=== PATIENT | male | born 1940 | race Two or more races ===

== ENCOUNTER 2017-10-06 13:52 | Observation (INO) | payer MEDICARE, MEDICAID ==
[2017-10-06] MEDS ORDERED: Nitroglycerin 2% OINT* 1 GM PAK TOPICAL ONE (14:13)
[2017-10-06] MEDS ORDERED: Furosemide IV* 10 MG/ML VIAL (40 MG) IV SLOW PU ONE (14:13)
[2017-10-06 14:50] LABS: Hematocrit 39 % (42-52); Hemoglobin 12.6 g/dl (14.0-18.0); Mean Corpuscular HGB Conc 32 g/dl (31-36); Mean Corpuscular Hemoglobin 32 pg (27-31); Mean Corpuscular Volume 100 fL (80-94); Mean Platelet Volume 10 um3 (7.4-10.4); Red Blood Count 3.89 10^6/ul (4.0-5.4); Red Cell Distribution Width 17 % (10.5-15); White Blood Count 5.6 10^3/ul (3.5-10.8)
--- NOTE | 2017-10-06 14:51 | RAD ---
INDICATION: Shortness of breath and rales. COMPARISON: Comparison is made with a prior chest x-ray study from September 24, 2016. TECHNIQUE: A portable view of the chest was obtained. FINDINGS: The heart is moderately enlarged and appears to have increased in size from the prior study. There is diffuse prominence of the interstitial markings and a small right pleural effusion most consistent with congestive heart failure. IMPRESSION: FINDINGS MOST CONSISTENT WITH CONGESTIVE HEART FAILURE.
[2017-10-06 15:06] LABS: Albumin 3.7 g/dL (3.2-5.2); BUN/Creatinine Ratio 10.6 (8-20); EGFR African American 32.8 (>60); EGFR Non-African American 25.5 (>60); Globulin 3.5 g/dL (2-4); Potassium 4.5 mmol/L (3.5-5.0); Total Bilirubin 0.9 mg/dL (0.2-1.0); Total Protein 7.2 g/dL (6.4-8.9)
[2017-10-06 15:08] LABS: Troponin I 0.03 ng/mL (<0.04)
[2017-10-06] MEDS ORDERED: Warfarin TAB(*) 2 MG PO SCH (17:00)
[2017-10-06] MEDS ORDERED: Albuterol HFA INHALER* 8 gm MDI INH PRN (17:06)
[2017-10-06] MEDS ORDERED: Acetaminophen TAB* 325 MG PO PRN (17:15)
--- NOTE | 2017-10-06 18:30 | HP ---
CC: Dr. Holm * [facility] MEDICINE HISTORY AND PHYSICAL: DATE OF ADMISSION: 10/06/17 PRIMARY CARE PHYSICIAN: Dr. Holm. ATTENDING PHYSICIAN: Dr. Twyla Bass * (dictation provided by Sarah Schmidt NP ). CHIEF COMPLAINT: Shortness of breath and lower extremity edema. HISTORY OF PRESENT ILLNESS: Mr. Madi Lebron is a 77-year-old male who is a Mozambican speaker and translation was provided by his daughter with whom he lives. Per the report from her and from the electronic medical record, he has a history of coronary artery disease with OH secondary to pulmonary embolism back in 2012, at which time he had a cardiac arrest. He also has hypertension, hyperlipidemia, BPH, CKD stage 4, and diastolic heart failure. The patient has been doing reasonably well. Recently, he last followed up with Dr. Holm on and at that time, there were no acute concerns. However, since Thanksgiving, the patient has been having increased shortness of breath and lower extremity edema. The patient' daughter denies any overt or excessive salt intake, but they do have a Thanksgiving meal. She notes that he was short of breath with walking across the room and that his lower extremity edema has increased. Today, he was short of breath at rest and therefore, she brought him to the emergency room for evaluation. He denies any other complaints. There is no fever, chills, cough, chest pain, nausea, vomiting, or abdominal pain. He has had a poor appetite recently. In the emergency room, Mr. Lebron had a chest x-ray, which showed likely pulmonary edema. His BUN and creatinine were baseline. His vitals were stable. He was noted to have an O2 saturation in the 70s. When he first arrived, he responded well to initial 4 L nasal cannula although now he is on room air. PAST MEDICAL HISTORY: 1. Coronary artery disease with OH secondary to pulmonary embolism, during which time he had a cardiac arrest in 2012. 2. Hypertension. 3. Hyperlipidemia. 4. BPH. 5. CKD stage 4. 6. Diastolic congestive heart failure. 7. Bilateral iliac aneurysms. 8. COPD. MEDICATIONS: 1. Epinephrine p.r.n. 2. Amlodipine 2.5 mg p.o. daily. 3. Furosemide 20 mg p.o. daily. 4. Warfarin 2 mg alternating with 3 mg every other day. 5. Albuterol inhaler 2 puffs inhaled q.4 hours p.r.n. 6. Atenolol 25 mg p.o. daily. 7. Atorvastatin 10 mg p.o. daily. 8. Calcitriol 0.25 mcg p.o. daily. 9. Cyanocobalamin 1000 mcg p.o. daily. 10. Ropinirole 0.25 mg p.o. at bedtime. 11. Tamsulosin 0.4 mg p.o. at bedtime. ALLERGIES: No known drug allergies. FAMILY HISTORY: Unknown. SOCIAL HISTORY: The patient is a former smoker. He quit in April. He has a 50 - pack year smoking history. He denies alcohol or drug use. He lives with his daughter. She is her surrogate decision maker. Her name is Niurka Quintanilla. REVIEW OF SYSTEMS: No fevers. No chills. No intended weight loss. Cardiac: No chest pain. Positive for edema. No cough. No hemoptysis. Positive for shortness of breath. No nausea, vomiting, or diarrhea. Positive for concern of constipation. Now, he has been having daily small bowel movements. No gross hematuria or dysuria. Neuro: No focal weakness or sensory loss. Eyes: No visual complaints. ENT: No dysphagia. Musculoskeletal: No arthralgias or myalgias. Skin: No rashes or lesions. Psych: No depression or anxiety. PHYSICAL EXAMINATION GENERAL: Mr. Madi Lebron is sitting on the bed. He is in no acute distress. His daughter is at the bedside. VITAL SIGNS: Temperature 97.5, pulse rate 59, respiratory rate 18, O2 saturation 99% on room air, blood pressure 129/72. LUNGS: Clear to auscultation bilaterally though they are very diminished and there is no good air movement. He is able to speak in complete sentences. There is no sternal retractions. Excessive work of breathing. HEART: S1, S2. No murmur, rub, or gallop and regular. ABDOMEN: Soft and nontender with bowel sounds positive x4. EXTREMITIES: No cyanosis. Positive for 1 to 2+ edema. NEUROLOGIC: He is alert. He is oriented x3. He moves all extremities equally. There is no facial asymmetry or focal weakness. Extraocular movements are intact. SKIN: Intact. LABORATORY DATA: Sodium 138, potassium 4.5, chloride 100, serum bicarbonate 36 , BUN 26, creatinine 2.46, glucose 126, lactic acid 1.2. WBC 5.6, hemoglobin 12.6, hematocrit 39, platelet count 126. INR 2.09. Chest x-ray shows concern for pulmonary edema. IMPRESSION: Mr. Madi Lebron is a 77-year-old male with past medical history of coronary artery disease, myocardial infarction secondary to a PE in 2012, during which time he had a cardiac arrest, chronic kidney disease stage 3, diastolic heart failure, hypertension, who presents to the hospital with concern for shortness of breath and lower extremity edema. Our plans are for observation in the hospital for the followin. Congestive heart failure: The patient only takes 20 mg of Lasix a day. I plan to give him a 40 mg of IV Lasix x1 now. He does have chronic kidney disease with BUN and creatinine at their baseline, which are 26 and 2.46 respectively. I think given this, it is prudent to await reassessment in the a.m. of his urine output and his breathing status as well as his kidney function before redosing Lasix. He will have I's and O's and daily weights. He will be monitored on telemetry unit. 2. Hypertension: We plan to hold amlodipine while we are diuresing. We will also be holding some furosemide, but plan to continue atenolol to avoid any rebound tachycardia. 3. Hyperlipidemia: Continue atorvastatin. 4. Benign prostatic hypertrophy: Continue tamsulosin. 5. Code status is full code. TIME SPENT: Approximately 60 minutes were spent on the admission of this patient, and more than half of the time was spent with him at the bedside reviewing the events leading up to this hospitalization, performing the physical examination, and reviewing the plan of care. SARAH SCHMIDT, LINDA [id number]/[facility] #: [id number] MARGO
--- NOTE | 2017-10-06 20:03 | ED ---
Ang Barba Gabriel, scribed for Mansoor Walls MD on 10/06/17 at 1410 . Shortness of Breath - HPI Summary HPI Summary: This patient is a 77 year old M presenting to [facility] accompanied by family with a chief complaint of SOB since 2 days prior. Patient has a history of CHF, AAA, and PEs. Patient sleeps on one pillow at night. - History of Current Complaint Chief Complaint: EDShortnessOfBreath Hx Obtained From: Family/Care Companion - Patient does not speak bhutanese Onset/Duration: Lasting Days - 2, Still Present Timing: Constant - Allergy/Home Medications Allergies/Adverse Reactions: Allergies Allergy/AdvReac Type Severity Reaction Status Date / Time No Known Allergies Allergy Verified 10/06/17 13:54 Home Medications: Home Medications Albuterol HFA INHALER* [Ventolin HFA Inhaler*] 2 puff INH Q4H PRN 10/06/17 [ History Confirmed 10/06/17] PMH/Surg Hx/FS Hx/Imm Hx Previously Healthy: No Endocrine/Hematology History: Denies: Hx Diabetes, Hx Thyroid Disease Cardiovascular History: Reports: Hx Aneurysm, Hx Angina, Hx Cardiac Arrest, Hx Congestive Heart Failure, Hx Deep Vein Thrombosis, Hx Embolism, Hx Hypercholesterolemia, Hx Hypertension, Other Cardiovascular Problems/Disorders - BLOOD CLOT IN LUNG 2 MONTHS AGO Denies: Hx Pacemaker/ICD Respiratory History: Reports: Hx Chronic Obstructive Pulmonary Disease (COPD), Hx Pulmonary Embolism, Other Respiratory Problems/Disorders - HX PE Denies: Hx Asthma GI History: Denies: Hx Ulcer History: Reports: Hx Chronic Renal Failure, Hx Renal Disease - INSUFFIENCY Denies: Hx Dialysis Musculoskeletal History: Denies: Hx Back Problems Sensory History: Reports: Hx Cataracts, Hx Contacts or Glasses - does not wear them, Hx Vision Problem Denies: Hx Eye Injury, Hx Glaucoma, Hx Deafness, Hx Hearing Aid, Hx Hearing Problem Opthamlomology History: Reports: Hx Cataracts, Hx Contacts or Glasses - does not wear them, Hx Vision Problem Denies: Hx Eye Injury, Hx Glaucoma Neurological History: Denies: Hx Dementia, Hx Seizures Psychiatric History: Denies: Hx Panic Disorder - Surgical History Surgery Procedure, Year, and Place: Eye surgery-CATARACT Oct 2013;. surgery for AAA repair- at [facility]- Oct 2013 (OP REPORT IN EMR - SUTURES) Hx Anesthesia Reactions: No Infectious Disease History: No Infectious Disease History: Denies: Hx Clostridium Difficile, Hx Hepatitis, Hx Human Immunodeficiency Virus (HIV), Hx of Known/Suspected MRSA, Hx Shingles, Hx Tuberculosis, Hx Known/ Suspected VRE, Hx Known/Suspected VRSA, History Other Infectious Disease, Traveled Outside the [place] in Last 30 Days - Family History Known Family History: Positive: Hypertension - Social History Alcohol Use: None Substance Use Type: Reports: None Hx Tobacco Use: No Smoking Status (MU): Former Smoker Have You Smoked in the Last Year: No Review of Systems Negative: Fever, Chills Negative: Erythema Negative: Sore Throat Negative: Chest Pain Positive: Shortness Of Breath. Negative: Cough Negative: Abdominal Pain, Vomiting, Nausea Negative: dysuria, hematuria Positive: Edema. Negative: Myalgia Negative: Rash Neurological: Negative - dizziness All Other Systems Reviewed And Are Negative: Yes Physical Exam - Summary Physical Exam Summary: Constitutional: Well-developed, Well-nourished, Alert. (-) Distressed Skin: Warm, Dry HENT: Normocephalic; Atraumatic Eyes: Conjunctiva normal Neck: Musculoskeletal ROM normal neck. (-) JVD, (-) Stridor, (-) Tracheal deviation Cardio: Rhythm regular, rate normal, Heart sounds normal; Intact distal pulses; The pedal pulses are 2+ and symmetric. Radial pulses are 2+ and symmetric. (-) Murmur Pulmonary/Chest wall: Effort normal. (-) Respiratory distress, (-) Wheezes, (+) Rales and tachypnea that improved when he was sat upright Abd: Soft, (-) Tenderness, (-) Distension, (-) Guarding, (-) Rebound Musculoskeletal: (-) Edema Lymph: (-) Cervical adenopathy Neuro: Alert, Oriented x3 Psych: Mood and affect Normal Triage Information Reviewed: Yes Vital Signs On Initial Exam: Initial Vitals Temp Pulse Resp BP Pulse Ox 97.5 F 60 16 138/48 82 10/06/17 13:54 10/06/17 13:54 10/06/17 13:54 10/06/17 13:54 10/06/17 13:54 Vital Signs Reviewed: Yes Diagnostics - Vital Signs Vital Signs Temp Pulse Resp BP Pulse Ox 10/06/17 13:54 97.5 F 60 16 138/48 82 - Laboratory Lab Results: Lab Results 10/06/17 10/06/17 10/06/17 Range/Units 14:32 14:32 14:32 WBC 5.6 (3.5-10.8) 10^3/ul RBC 3.89 L (4.0-5.4) 10^6/ul Hgb 12.6 L (14.0-18.0) g/dl Hct 39 L (42-52) % MCV 100 H (80-94) fL MCH 32 H (27-31) pg MCHC 32 (31-36) g/dl RDW 17 H (10.5-15) % Plt Count 126 L (150-450) 10^3/ul MPV 10 (7.4-10.4) um3 Neut % (Auto) 62.4 (38-83) % Lymph % (Auto) 22.0 L (25-47) % [place] % (Auto) 13.9 H (1-9) % Eos % (Auto) 1.3 (0-6) % Baso % (Auto) 0.4 (0-2) % Absolute Neuts (auto) 3.5 (1.5-7.7) 10^3/ul Absolute Lymphs (auto) 1.2 (1.0-4.8) 10^3/ul Absolute Monos (auto) 0.8 (0-0.8) 10^3/ul Absolute Eos (auto) 0.1 (0-0.6) 10^3/ul Absolute Basos (auto) 0 (0-0.2) 10^3/ul Absolute Nucleated RBC 0.01 10^3/ul Nucleated RBC % 0.2 INR (Anticoag Therapy) (0.89-1.11) APTT (26.0-36.3) seconds Sodium 138 (133-145) mmol/L Potassium 4.5 (3.5-5.0) mmol/L Chloride 100 L (101-111) mmol/L Carbon Dioxide 36 H (22-32) mmol/L Anion Gap 2 (2-11) mmol/L BUN 26 H (6-24) mg/dL Creatinine 2.46 H (0.67-1.17) mg/dL Est GFR ( Amer) 32.8 (>60) Est GFR (Non-Af Amer) 25.5 (>60) BUN/Creatinine Ratio 10.6 (8-20) Glucose 126 H (70-100) mg/dL Lactic Acid 1.2 (0.5-2.0) mmol/L Calcium 9.0 (8.6-10.3) mg/dL Total Bilirubin 0.90 (0.2-1.0) mg/dL AST 32 (13-39) U/L ALT 57 H (7-52) U/L Alkaline Phosphatase 64 (34-104) U/L Troponin I 0.03 (<0.04) ng/mL Total Protein 7.2 (6.4-8.9) g/dL Albumin 3.7 (3.2-5.2) g/dL Globulin 3.5 (2-4) g/dL Albumin/Globulin Ratio 1.1 (1-3) // Range/Units 14:32 WBC (3.5-10.8) 10^3/ul RBC (4.0-5.4) 10^6/ul Hgb (14.0-18.0) g/dl Hct (42-52) % MCV (80-94) fL MCH (27-31) pg MCHC (31-36) g/dl RDW (10.5-15) % Plt Count (150-450) 10^3/ul MPV (7.4-10.4) um3 Neut % (Auto) (38-83) % Lymph % (Auto) (25-47) % [place] % (Auto) (1-9) % Eos % (Auto) (0-6) % Baso % (Auto) (0-2) % Absolute Neuts (auto) (1.5-7.7) 10^3/ul Absolute Lymphs (auto) (1.0-4.8) 10^3/ul Absolute Monos (auto) (0-0.8) 10^3/ul Absolute Eos (auto) (0-0.6) 10^3/ul Absolute Basos (auto) (0-0.2) 10^3/ul Absolute Nucleated RBC 10^3/ul Nucleated RBC % INR (Anticoag Therapy) 2.09 H (0.89-1.11) APTT 39.9 H (26.0-36.3) seconds Sodium (133-145) mmol/L Potassium (3.5-5.0) mmol/L Chloride (101-111) mmol/L Carbon Dioxide (22-32) mmol/L Anion Gap (2-11) mmol/L BUN (6-24) mg/dL Creatinine (0.67-1.17) mg/dL Est GFR ( Amer) (>60) Est GFR (Non-Af Amer) (>60) BUN/Creatinine Ratio (8-20) Glucose (70-100) mg/dL Lactic Acid (0.5-2.0) mmol/L Calcium (8.6-10.3) mg/dL Total Bilirubin (0.2-1.0) mg/dL AST (13-39) U/L ALT (7-52) U/L Alkaline Phosphatase (34-104) U/L Troponin I (<0.04) ng/mL Total Protein (6.4-8.9) g/dL Albumin (3.2-5.2) g/dL Globulin (2-4) g/dL Albumin/Globulin Ratio (1-3) Result Diagrams: 10/06/17 14:32 10/06/17 14:32 Lab Statement: Any lab studies that have been ordered have been reviewed, and results considered in the medical decision making process. - Radiology CXR Radiology Interpretation Completed By: Radiologist - FINDINGS MOST CONSISTENT WITH CONGESTIVE HEART FAILURE. ED physician has reviewed this radiology report and agrees. - EKG 14:21 Cardiac Rate: Other Rate EKG Rhythm: Atrial Fibrillation - at 56 BPM EKG Interpretation: No STEMI Re-Evaluation - Re-Evaluation First Eval Re-Evaluation Time: 16:16 Change: Improved - Patient feels better after nitroglycerin Course/Dx - Diagnoses Provider Diagnoses: Acute diastolic CHF (congestive heart failure) Discharge - Discharge Plan Condition: Good Disposition: ADMITTED TO [facility] documentation as recorded by the Ang horton Gabriel accurately reflects the service I personally performed and the decisions made by me, Mansoor Walls MD.
[2017-10-06 20:53] LABS: Magnesium 2.3 mg/dL (1.9-2.7)
[2017-10-06 20:57] LABS: Troponin I 0.03 ng/mL (<0.04)
[2017-10-06] MEDS ORDERED: Tamsulosin CAP* 0.4 MG PO SCH (21:00)
[2017-10-06] MEDS ORDERED: Ropinirole TAB* 0.5 MG TAB PO SCH (21:00)
[2017-10-06] MEDS ORDERED: Magnesium Hydroxide LIQ* 30 ML UDC PO ONE (21:56)
[2017-10-07 06:45] LABS: BUN/Creatinine Ratio 10.9 (8-20); Calcium 9.2 mg/dL (8.6-10.3); EGFR African American 35.5 (>60); EGFR Non-African American 27.6 (>60); Potassium 4.5 mmol/L (3.5-5.0)
--- NOTE | 2017-10-07 06:52 | PN ---
Progress Note - Progress Note Date of Service: 10/06/17 Note: Patient noted to have bradycardia with several 3 second pauses. Patient asymptomatic. Atenolol held for AM.
[2017-10-07] MEDS ORDERED: Atenolol TAB* 25 MG PO SCH ×2 (09:00)
[2017-10-07] MEDS ORDERED: Calcitriol CAP* 0.25 MCG PO SCH (09:00)
[2017-10-07] MEDS ORDERED: Atorvastatin* 10 MG TAB PO SCH (09:00)
[2017-10-07] MEDS ORDERED: Cyanocobalamin TAB* 500 MCG PO SCH (09:00)
[2017-10-07] MEDS ORDERED: Furosemide IV* 10 MG/ML VIAL (40 MG) IV ONE (09:06)
--- NOTE | 2017-10-07 09:09 | PN ---
Subjective Date of Service: 10/07/17 Interval History: Pt is feeling well. His breathing is much improved and back to baseline. He has not done any walking yet this AM. No chest pain. His LE edema is better per his daughter. Objective Active Medications: Acetaminophen (Tylenol Tab*) 650 mg PO Q6H PRN PRN Reason: PAIN Last Admin: 10/06/17 20:19 Dose: 650 mg Albuterol (Ventolin Hfa Inhaler*) 2 puff INH Q4H PRN PRN Reason: WHEEZING Atorvastatin Calcium (Lipitor*) 10 mg PO DAILY MICHAEL Calcitriol (Rocaltrol Cap*) 0.25 mcg PO DAILY MICHAEL Cyanocobalamin (Vitamin B12 Tab*) 1,000 mcg PO DAILY MICHAEL Ropinirole HCl (Requip Tab*) 0.25 mg PO BEDTIME MICHAEL Last Admin: 10/06/17 20:14 Dose: 0.25 mg Tamsulosin HCl (Flomax Cap*) 0.4 mg PO BEDTIME MICHAEL Last Admin: 10/06/17 20:15 Dose: 0.4 mg Warfarin Sodium (Coumadin Tab(*)) 2 mg PO Q48H MICHAEL PRN Reason: Protocol Last Admin: 10/06/17 18:37 Dose: 2 mg Warfarin Sodium (Coumadin Tab(*)) 3 mg PO Q48H MICHAEL PRN Reason: Protocol Vital Signs 10/06/17 10/06/17 10/06/17 17:30 17:50 20:00 Temperature 97.4 F Pulse Rate 57 51 Respiratory 22 20 20 Rate Blood Pressure 118/76 132/71 (mmHg) O2 Sat by Pulse 97 97 Oximetry 10/07/17 10/07/17 10/07/17 00:22 04:45 07:29 Temperature 98.5 F 98.5 F 98.3 F Pulse Rate 50 50 53 Respiratory 16 16 20 Rate Blood Pressure 144/58 142/59 144/69 (mmHg) O2 Sat by Pulse 100 100 100 Oximetry 10/07/17 07:56 Temperature Pulse Rate Respiratory 16 Rate Blood Pressure (mmHg) O2 Sat by Pulse Oximetry Oxygen Devices in Use Now: Nasal Cannula - 3L-100% Appearance: Elderly male lying in bed, NAD Eyes: No Scleral Icterus Ears/Nose/Mouth/Throat: Mucous Membranes Moist Respiratory: Symmetrical Chest Expansion and Respiratory Effort, - - crackles about [address] up bilaterally but R>L Cardiovascular: NL Sounds; No Murmurs; No JVD, - - irregularly irregular, controlled rate, trace-1+ pitting edema of B/L LE Abdominal: NL Sounds; No Tenderness; No Distention Extremities: No Clubbing, Cyanosis Skin: No Rash or Ulcers, No Nodules or Sclerosis Neurological: Alert and Oriented x 3 Result Diagrams: 10/06/17 14:32 10/07/17 06:07 Additional Lab and Data: Lab Results 10/06/17 10/06/17 10/06/17 Range/Units 14:32 14:32 14:32 WBC 5.6 (3.5-10.8) 10^3/ul RBC 3.89 L (4.0-5.4) 10^6/ul Hgb 12.6 L (14.0-18.0) g/dl Hct 39 L (42-52) % MCV 100 H (80-94) fL MCH 32 H (27-31) pg MCHC 32 (31-36) g/dl RDW 17 H (10.5-15) % Plt Count 126 L (150-450) 10^3/ul MPV 10 (7.4-10.4) um3 Neut % (Auto) 62.4 (38-83) % Lymph % (Auto) 22.0 L (25-47) % [place] % (Auto) 13.9 H (1-9) % Eos % (Auto) 1.3 (0-6) % Baso % (Auto) 0.4 (0-2) % Absolute Neuts (auto) 3.5 (1.5-7.7) 10^3/ul Absolute Lymphs (auto) 1.2 (1.0-4.8) 10^3/ul Absolute Monos (auto) 0.8 (0-0.8) 10^3/ul Absolute Eos (auto) 0.1 (0-0.6) 10^3/ul Absolute Basos (auto) 0 (0-0.2) 10^3/ul Absolute Nucleated RBC 0.01 10^3/ul Nucleated RBC % 0.2 INR (Anticoag Therapy) (0.89-1.11) APTT (26.0-36.3) seconds Sodium 138 (133-145) mmol/L Potassium 4.5 (3.5-5.0) mmol/L Chloride 100 L (101-111) mmol/L Carbon Dioxide 36 H (22-32) mmol/L Anion Gap 2 (2-11) mmol/L BUN 26 H (6-24) mg/dL Creatinine 2.46 H (0.67-1.17) mg/dL Est GFR ( Amer) 32.8 (>60) Est GFR (Non-Af Amer) 25.5 (>60) BUN/Creatinine Ratio 10.6 (8-20) Glucose 126 H (70-100) mg/dL Lactic Acid 1.2 (0.5-2.0) mmol/L Calcium 9.0 (8.6-10.3) mg/dL Total Bilirubin 0.90 (0.2-1.0) mg/dL AST 32 (13-39) U/L ALT 57 H (7-52) U/L Alkaline Phosphatase 64 (34-104) U/L Troponin I 0.03 (<0.04) ng/mL Total Protein 7.2 (6.4-8.9) g/dL Albumin 3.7 (3.2-5.2) g/dL Globulin 3.5 (2-4) g/dL Albumin/Globulin Ratio 1.1 (1-3) 11/25/17 Range/Units 14:32 WBC (3.5-10.8) 10^3/ul RBC (4.0-5.4) 10^6/ul Hgb (14.0-18.0) g/dl Hct (42-52) % MCV (80-94) fL MCH (27-31) pg MCHC (31-36) g/dl RDW (10.5-15) % Plt Count (150-450) 10^3/ul MPV (7.4-10.4) um3 Neut % (Auto) (38-83) % Lymph % (Auto) (25-47) % [place] % (Auto) (1-9) % Eos % (Auto) (0-6) % Baso % (Auto) (0-2) % Absolute Neuts (auto) (1.5-7.7) 10^3/ul Absolute Lymphs (auto) (1.0-4.8) 10^3/ul Absolute Monos (auto) (0-0.8) 10^3/ul Absolute Eos (auto) (0-0.6) 10^3/ul Absolute Basos (auto) (0-0.2) 10^3/ul Absolute Nucleated RBC 10^3/ul Nucleated RBC % INR (Anticoag Therapy) 2.09 H (0.89-1.11) APTT 39.9 H (26.0-36.3) seconds Sodium (133-145) mmol/L Potassium (3.5-5.0) mmol/L Chloride (101-111) mmol/L Carbon Dioxide (22-32) mmol/L Anion Gap (2-11) mmol/L BUN (6-24) mg/dL Creatinine (0.67-1.17) mg/dL Est GFR ( Amer) (>60) Est GFR (Non-Af Amer) (>60) BUN/Creatinine Ratio (8-20) Glucose (70-100) mg/dL Lactic Acid (0.5-2.0) mmol/L Calcium (8.6-10.3) mg/dL Total Bilirubin (0.2-1.0) mg/dL AST (13-39) U/L ALT (7-52) U/L Alkaline Phosphatase (34-104) U/L Troponin I (<0.04) ng/mL Total Protein (6.4-8.9) g/dL Albumin (3.2-5.2) g/dL Globulin (2-4) g/dL Albumin/Globulin Ratio (1-3) Assess/Plan/Problems-Billing Mr Madi Lebron is a 77 yo M who has a h/o diastolic CHF, CAD, COPD, HTN and stage IV CKD who presented to the ER with c/o SOB and was admitted under observation status for treatment of his acute diastolic CHF. - Patient Problems (1) Acute diastolic CHF (congestive heart failure) Status: Acute Code(s): I50.31 - ACUTE DIASTOLIC (CONGESTIVE) HEART FAILURE SNOMED Code(s): 587205324 Comment: Much improved today. Continue usual dose of lasix at home. Follow up with Dr. Holm this week. (2) HTN (hypertension) Status: Acute Code(s): I10 - ESSENTIAL (PRIMARY) HYPERTENSION SNOMED Code(s) : 96080065 Comment: BP under fair control off his usual home meds. Resume amlodipine but continue to hold atenolol as pt was bradycardic and having 3 sec pauses. (3) CKD (chronic kidney disease) stage 4, GFR 15-29 ml/min Status: Acute Code(s): N18.4 - CHRONIC KIDNEY DISEASE, STAGE 4 (SEVERE) SNOMED Code(s): 108555348 Comment: Creatinine is at baseline. Continue to follow as outpatient. (4) COPD (chronic obstructive pulmonary disease) Status: Acute Code(s): J44.9 - CHRONIC OBSTRUCTIVE PULMONARY DISEASE, UNSPECIFIED SNOMED Code(s): 77702518 Comment: No signs of exacerbation. (5) DVT prophylaxis Status: Acute Code(s): MMR3482 - SNOMED Code(s): 569093405 Comment: therapeutic INR
[2017-10-07 11:50] VITALS: BP 126/59
[2017-10-07] MEDS ORDERED: Warfarin TAB(*) 3 MG PO SCH (17:00)
--- NOTE | 2017-10-08 00:13 | DS ---
CC: Dr. Holm * DISCHARGE SUMMARY: DATE OF ADMISSION: 10/06/17 DATE OF DISCHARGE: 10/07/17 PRIMARY CARE PROVIDER: Dr. Holm. CHIEF COMPLAINT: Acute diastolic congestive heart failure. SECONDARY DIAGNOSES: 1. Chronic obstructive pulmonary disease. 2. Hypertension. 3. Atrial fibrillation. DISCHARGE MEDICATIONS: 1. Albuterol 2 puffs inhaled q.4 hours p.r.n. shortness of breath. 2. Flomax 0.4 mg p.o. q.h.s. 3. Requip 0.25 mg p.o. q.h.s. 4. Lasix 20 mg p.o. daily. 5. Vitamin B12, 1000 mcg p.o. daily. 6. Calcitriol 0.25 mcg p.o. daily. 7. Lipitor 10 mg p.o. daily. 8. Amlodipine 2.5 mg p.o. daily. 9. Coumadin 2 mg alternating every other day with 3 mg. 10. EpiPen 0.3 mg IM daily p.r.n. allergic reaction. HOSPITAL COURSE: Mr. Madi Lebron is a 77-year-old male with a history of diastolic congestive heart failure, coronary artery disease, hypertension, COPD , end-stage chronic kidney disease, presented to the emergency room with complaints of shortness of breath. My suspicion is that the patient may have gone into acute diastolic congestive heart failure related to salt intake over . The patient received a dose of IV Lasix in the emergency room with much improvement in his symptoms. On the day of discharge, the patient continued to have crackles on exam. Therefore, another dose of IV Lasix was given; however, at that point the patient was feeling markedly improved. The patient has been up and ambulating without any difficulty. It is felt that the patient is stable for discharge home today, 10/07/17. While in the hospital, the patient was noted to be in atrial fibrillation, which is a chronic issue for the patient; however, he was having several 3- second pauses. In addition, his heart rate ranged in the 50s to at most 60s. Because of this, his atenolol was discontinued. The patient will need to follow up with Dr. Holm this week to determine if the atenolol should be added back, perhaps at a lower dose. FOLLOWUP CONCERNS: The patient is being discharged home today, 10/07/17. He is to follow up with Dr. Holm this week. ACTIVITY LEVEL: As tolerated. DIET: No added salt. CONDITION ON DISCHARGE: Stable. TIME SPENT: 35 minutes was spent discharging this patient. [id number] #: [id number] MTDD
== END 2017-10-07 14:13 | disposition home or self-care (01) ==
LOC: ED 13:52 → MEDTELE 17:17
PROVIDERS: ADMIT Internal Medicine; ATTEND Hospitalist
DX: I13.0 Hypertensive heart and chronic kidney disease with heart failure and stage 1 through stage 4 chronic kidney disease, or unspecified chronic kidney disease (principal); I50.31 Acute diastolic (congestive) heart failure; N18.4 Chronic kidney disease, stage 4 (severe); I25.10 Atherosclerotic heart disease of native coronary artery without angina pectoris; I25.2 Old myocardial infarction; E78.5 Hyperlipidemia, unspecified; N40.0 Benign prostatic hyperplasia without lower urinary tract symptoms; J44.9 Chronic obstructive pulmonary disease, unspecified; I72.3 Aneurysm of iliac artery; Z79.01 Long term (current) use of anticoagulants; Z79.899 Other long term (current) drug therapy; Z86.711 Personal history of pulmonary embolism; Z87.891 Personal history of nicotine dependence; R94.31 Abnormal electrocardiogram [ECG] [EKG]
CPT/HCPCS: 36415; 71010; 80048; 80053; 83605; 83735; 84484; 85025; 85610; 85730; 93005; 96374; 96376; 99283; A9270-GY; G0378; J1940